=== PATIENT | female | born 1995 | race African-American/Black ===

== ENCOUNTER 2017-07-07 16:30 | Emergency (ER) | payer SELFPAY ==
[~2017-07-07] VITALS: Ht 162.6 cm; Wt 113.6 kg
[2017-07-07 16:38] VITALS: BP 140/90; TEMP 98.2
[2017-07-07] MEDS ORDERED: GLUCOPHAGE500 MG/TAB PO (16:40)
[2017-07-07 17:05] LABS: COLLECTION METHOD CLEAN CATCH
[2017-07-07 17:31] LABS: MUCOUS Present /lpf; PH 6 (5-8); URINE APPEARANCE Hazy; URINE BACTERIA Rare /hpf; URINE BILIRUBIN Negative (NEGATIVE); URINE BLOOD Negative (NEGATIVE); URINE COLOR Yellow; URINE GLUCOSE Negative (NEGATIVE); URINE KETONE Negative (NEGATIVE); URINE LEUKOCYTE ESTERASE 2+ (NEGATIVE); URINE PROTEIN(semi-quant) Negative (NEGATIVE); URINE RBC 0-2 /hpf; URINE UROBILINOGEN >=4.0 mg/dL (NEGATIVE); URINE WBC 0-2 /hpf
[2017-07-07] MEDS ORDERED: CEFTIN 250250 MG/TAB PO (18:08)
[2017-07-07 18:22] VITALS: PULSE 80
[2017-07-07 20:11] LABS: CHLAMYDIA/TRACH by PCR Female DETECTED; NEISSERIA GON by PCR Female DETECTED
== END 2017-07-07 18:24 | disposition home or self-care (01) ==
LOC: COL.ER 16:30
PROVIDERS: Nurse Practitioner; Physician Assistant
DX: R30.0 Dysuria (principal); R10.9 Unspecified abdominal pain; E11.9 Type 2 diabetes mellitus without complications; Z87.440 Personal history of urinary (tract) infections; Z79.84 Long term (current) use of oral hypoglycemic drugs

== ENCOUNTER → 2017-07-07 | Outpatient (CLI) | payer SELFPAY ==
[~2017-07-07] VITALS: Ht 162.6 cm; Wt 113.6 kg
[~2017-07-07] MED LIST: CEFTIN 250250 MG/TAB PO; GLUCOPHAGE500 MG/TAB PO
[2017-07-07 21:12] VITALS: BP 133/78; PULSE 76; TEMP 98.2
== END ==
LOC: COL.ER 20:29
DX: Z79.2 Long term (current) use of antibiotics (principal)
CPT/HCPCS: J0696

== ENCOUNTER 2018-07-27 17:27 | Emergency (ER) | payer MEDICAID ==
[~2018-07-27] VITALS: Ht 162.6 cm; Wt 90.9 kg
[2018-07-27 17:36] VITALS: BP 121/82; TEMP 98.9
[2018-07-27 18:14] LABS: COLLECTION METHOD CLEAN CATCH
[2018-07-27 18:17] LABS: BASO % 0.4 % (0.0-2.0); EOS % 0.6 % (0-4.0); GRAN # 2.9 (1.4-6.5); GRAN % 55.8 % (42.2-75.2); HEMATOCRIT 39.9 % (37.0-47.0); LYMPH # 1.9 (1.2-3.4); LYMPH % 36.9 % (20.0-51.0); MEAN CELL VOLUME 81 fl (80.0-100.0); MEAN CORPUSCULAR HEMOGLOBIN 27 pg (27.0-31.0); MEAN CORPUSCULAR HGB CONC 33 g/dl (33.0-37.0); MEAN PLATELET VOLUME 9.8 fl (7.4-10.4); MONO # 0.3 (0.1-0.6); MONO % 6.1 % (1.7-9.3); PLATELET COUNT 285 K/mm3 (130-400); REDCELL DISTRIBUTION WIDTH-CV 11.9 % (11.5-14.5)
[2018-07-27 18:35] LABS: ALANINE AMINOTRANSFERASE 26 U/L (9-52); ALBUMIN 4.4 gm/dL (3.5-5.0); ALKALINE PHOSPHATASE 57 U/L (50-136); ANION GAP 9 mmol/L (7-16); AST,SGOT 18 U/L (15-37); BILIRUBIN,TOTAL 0.6 mg/dL (0.0-1.0); BLOOD UREA NITROGEN 8 mg/dL (7-17); CALCIUM 9.4 mg/dL (8.4-10.2); CARBON DIOXIDE 26 mmol/L (22-30); CHLORIDE 102 mmol/L (98-107); CREATININE, serum 0.66 mg/dL (0.52-1.25); GLUCOSE 296 mg/dL (74-106); LIPASE 123 U/L (23-300); POTASSIUM 3.5 mmol/L (3.4-5.0); SODIUM 136 mmol/L (137-145)
[2018-07-27 18:41] LABS: C-REACTIVE PROTEIN < 0.5 mg/dL (0.0-0.9)
[2018-07-27 18:44] LABS: BUDDING YEAST Present /hpf; MUCOUS Present /lpf; PH 5 (5-8); URINE APPEARANCE Cloudy; URINE BACTERIA Rare /hpf; URINE BILIRUBIN Negative (NEGATIVE); URINE BLOOD 1+ (NEGATIVE); URINE COLOR Yellow; URINE GLUCOSE 3+ (NEGATIVE); URINE KETONE Trace (NEGATIVE); URINE LEUKOCYTE ESTERASE 3+ (NEGATIVE); URINE NITRATE Negative (NEGATIVE); URINE PROTEIN(semi-quant) 1+ (NEGATIVE); URINE RBC >50 /hpf; URINE UROBILINOGEN Negative (NEGATIVE)
[2018-07-27] MEDS ORDERED: MACROBID 1100 MG/CAP PO (19:04)
[2018-07-27] MEDS ORDERED: DIFLUCAN150 MG PO (19:04)
[2018-07-27 19:40] VITALS: PULSE 86
== END 2018-07-27 19:42 | disposition home or self-care (01) ==
LOC: COL.ER 17:27
PROVIDERS: Family Medicine
DX: E11.65 Type 2 diabetes mellitus with hyperglycemia (principal); N39.0 Urinary tract infection, site not specified; B37.3 Candidiasis of vulva and vagina; Z79.84 Long term (current) use of oral hypoglycemic drugs
CPT/HCPCS: J7030